=== PATIENT | male | born 1980 | race Two or more races ===

== ENCOUNTER 2016-09-04 21:50 | Emergency (ER) | payer OTHER ==
[~2016-09-04] VITALS: Ht 188 cm; Wt 86.2 kg
[2016-09-05 00:47] VITALS: BP 129/71
== END 2016-09-05 02:00 | disposition home or self-care (01) ==
LOC: ER 21:52 → EEVIPCON 21:52 → ER 09-05 00:48
DX: S63.91XA Sprain of unspecified part of right wrist and hand, initial encounter (principal); Z02.89 Encounter for other administrative examinations; W22.8XXA Striking against or struck by other objects, initial encounter; Y93.89 Activity, other specified; Y99.8 Other external cause status; Y92.149 Unspecified place in prison as the place of occurrence of the external cause
CPT/HCPCS: 73130